=== PATIENT | male | born 1955 | race Caucasian/White ===

== ENCOUNTER 2021-10-18 15:06 | Emergency (ER) | payer BC, SELFPAY ==
[2021-10-18 15:07] VITALS: BP 193/102; PULSE 71; RESP 16; TEMP 35.8; O2SAT 98; BMI 26.4
--- NOTE | 2021-10-18 16:02 | EX.ED.DYSGE1 ---
HPI History of Present Illness Chief Complaint: Mccarty C/O Informant: patient Onset/Context/Timing Onset: Yesterday Context: Gradual Onset Timing: Continuous Quality: Burning Location: Urethra Worsened by: Nothing Relieved by: Nothing Narrative Narrative: Patient presents with problems with his Mccarty catheter. Patient has noted some burning that began yesterday. Patient noted some leaking around his catheter yesterday. Patient also admits to some urinary urgency. Patient had a recent prostate artery embolization for prostate hypertrophy. Patient is concerned that his catheter is not draining and he is retaining urine. Patient denies any fevers or chills. Patient denies any back pain. Patient denies any nausea or vomiting. [facility] Medical History (Updated 10/18/21 @ 17:[address] Wero Hayes DO) Hx of small bowel obstruction Allergy/AdvReac Type Severity Reaction Status Date / Time No Known Allergies Allergy Verified 10/18/21 15:09 Social History Smoking Status: Never smoker ROS ROS ED Constitutional Constitutional ED: Denies chills or fever(s) Eyes Eyes: Denies blurry vision or change in vision ENT ENT ED: Denies rhinorrhea or sore throat Cardiovascular Cardiovascular: Denies chest pain or palpitations Respiratory/Chest Respiratory/Chest: Denies cough or dyspnea Gastrointestinal Gastrointestinal: Denies nausea or vomiting Genitourinary Genitourinary ED: Denies dysuria or hematuria Musculoskeletal Musculoskeletal: Denies back pain or neck pain Integumentary Denies abscess or rash Neurologic Neurologic: Denies headache(s) or weakness Allergic/Immunologic Allergic/Immunologic ED: Denies mouth swelling or urticaria EXAM Physical Exam Const Vital Signs: 10/18/21 15:07 Temperature 96.5 F L Temperature Source Temporal Pulse Rate 71 Respiratory Rate 16 Blood Pressure 193/102 H Blood Pressure Mean 132 Pulse Ox 98 Oxygen Delivery Method Room Air Positive well nourished and well developed General Appearance ED: well developed HEENT Reports moist mucous membranes Neck supple and no JVD Resp normal respiratory effort and clear to auscultation bilaterally Cardio regular rate, regular rhythm and no murmurs GI normal to inspection, nondistended, normoactive bowel sounds and non-tender Palpation: soft Extremity normal to inspection General Extremety ED: Negative for edema or tenderness General Extremity: Negative for edema Neuro oriented x3, CN's II-XII intact bilaterally and no sensory deficits noted Sensorium / Orientation: alert Motor Exam: strength 5/5 throughout Psych mental status grossly normal Skin no rashes or lesions noted MDM MDM MDM Narrative Medical decision making narrative: The catheter was irrigated. It flowed easily. CBC and basic metabolic profile were obtained were within normal limits. Urinalysis does not show any evidence of urinary tract infection. Patient was feeling better. Patient left prior to completing discharge instructions. Patient did not receive a his discharge instructions or sign his discharge paperwork. Lab Data Attestation: I reviewed the patient's lab results. Labs: Laboratory Results - last 24 hr 10/18/21 10/18/21 10/18/21 16:11 16:11 16:14 WBC 11.1 H RBC 4.25 L Hgb 13.7 Hct 40.7 MCV 95.8 H MCH 32.2 H MCHC 33.7 RDW Std Deviation 43.3 RDW Coeff of Laly 12.3 Plt Count 192 MPV 9.9 Immature Gran % (Auto) 0.400 Neut % (Auto) 82.1 H Lymph % (Auto) 6.6 L [place] % (Auto) 9.2 Eos % (Auto) 1.2 Baso % (Auto) 0.5 Absolute Neuts (auto) 9.1 H Absolute Lymphs (auto) 0.73 L Nucleated RBC % 0 Sodium 140 Potassium 3.9 Chloride 108 H Carbon Dioxide 27.0 Anion Gap 5 BUN 20 H Creatinine 1.14 Estim Creat Clear Calc 71.06 Est GFR (MDRD) Af Amer 82 Est GFR (MDRD) Non-Af 68 BUN/Creatinine Ratio 17.5 Glucose 106 Calcium 9.5 Urine Color Yellow Urine Clarity Sl. Cloudy Urine pH 5.0 Ur Specific [place] 1.025 Urine Protein 30 H Urine Glucose (UA) Normal Urine Ketones Negative Urine Occult Blood 250 H Urine Nitrite Negative Urine Bilirubin Negative Urine Urobilinogen Normal Ur Leukocyte Esterase Negative Urine RBC 25-50 SEEN Urine WBC 0-5 SEEN Ur Squamous Epith Cells 0 SEEN Urine Bacteria 1+ Urine Mucus 0 SEEN Discharge Plan Triage Chief Complaint: Mccarty C/O ED Provider: Wero Hayes Dx/Rx/DC Orders Clinical Impression: Dysuria Instructions: ED Mccarty Catheter, Care Primary Care Provider: Marta Maier Referrals: Marta Maier, DO [Primary Care Provider] - 5-7 Days Disposition Disposition: [facility] Discharge Date/Time: 10/18/21 17:51
[2021-10-18 16:18] LABS: Mucous, Urine 0 SEEN /hpf (<or=2+); Squamous Epithelial Cells - UA 0 SEEN /hpf (0-5)
[2021-10-18 16:19] LABS: Absolute Lymphocyte Count 0.73 X10^3/uL (0.83-4.51); Absolute Neutrophil Count 9.1 X10^3/uL (2.0-7.7); Basophil# 0.06 X10^3/uL; Basophil% 0.5 % (0-1); Eosinophil# 0.13 X10^3/uL; Eosinophils% 1.2 % (0-5); Hematocrit 40.7 % (40-54); Hemoglobin 13.7 g/dL (13.0-16.5); Lymphocyte # 0.73 X10^3/ul (0.83-4.51); Lymphocyte % 6.6 % (19-41); Mean Corp Hgb Conc 33.7 g/dL (32-36); Mean Corpuscular Hgb 32.2 pg (27.0-32.0); Mean Corpuscular Volume 95.8 fL (80-94); Mean Platelet Vol. 9.9 fl (6.2-12.0); Monocyte# 1.02 X10^3/uL; Monocyte% 9.2 % (0-10); NRBC Flagged by Analyzer 0 % (0-5); Neutrophil # 9.08 X10^3/uL (2.7-7.7); Neutrophil % 82.1 % (47-70); Platelet Count 192 K/mm3 (150-450); RBC Distribution Width CV 12.3 % (11.6-14.6); RBC Distribution Width SD 43.3 fl (35.1-43.9); Red Blood Count 4.25 M/mm3 (4.6-6.2); White Blood Count 11.1 K/mm3 (4.4-11.0)
[2021-10-18 16:21] LABS: Color, Urine Yellow (Yellow); Glucose, Dipstick Normal (Normal); Ketone-Dipstick Negative (Negative); Leukocyte Esterase-Dipstick Negative /ul (Negative); Nitrite-Dipstick Negative (Negative); Occult Blood-Urine 250 /ul (Negative); Protein-Dipstick 30 mg/dl (Negative); Specific Gravity, Urine 1.025 (1.002-1.030); Urine Bilirubin Dipstick Negative (Negative); Urine Clarity Sl. Cloudy (Clear); Urine Urobilinogen Normal (Normal)
[2021-10-18 16:35] LABS: Red Blood Cells-Urine 25-50 SEEN /hpf (0-5)
[2021-10-18 16:36] LABS: White Blood Cells 0-5 SEEN /hpf (0-5)
[2021-10-18 16:37] LABS: Bacteria 1+ /hpf (None Seen)
[2021-10-18 16:52] LABS: Anion Gap 5 (5-15); BUN 20 mg/dL (7-18); BUN/Creat Ratio 17.5 RATIO (10-20); Calcium,Total 9.5 mg/dL (8.5-10.1); Chloride 108 mmol/L (98-107); Creatinine, Serum 1.14 mg/dL (0.70-1.30); EST Glomerular Filtration Rate 68 mL/min (>60); Est Glom Filt Rate - Afr Amer 82 mL/min (>60); Estimated Creatinine Clearance 71.06 ml/min; Glucose 106 mg/dL (74-106); Potassium 3.9 mmol/L (3.5-5.1); Sodium Level 140 mmol/L (136-145)
--- NOTE | 2021-10-18 17:22 | ED.RN ---
PT LEFT PRIOR TO RECEIVING D/C INSTRUCTIONS.
== END 2021-10-18 17:51 | disposition left against medical advice (07) ==
LOC: ED 15:46
PROVIDERS: Emergency Provider Emergency Medicine; PCP Internal Medicine
DX: R30.0 Dysuria (principal)
CPT/HCPCS: 36415; 80048; 81001; 85025; 99281; 99282

== ENCOUNTER 2022-12-10 14:02 | Emergency (ER) | payer BC, SELFPAY ==
[2022-12-10 14:03] VITALS: BP 184/100; PULSE 55; RESP 18; TEMP 35.9; O2SAT 96; BMI 26.6
[2022-12-10 14:24] VITALS: BP 189/108; PULSE 56; RESP 16; O2SAT 97
--- NOTE | 2022-12-10 14:33 | EKG12_ITS ---
Test Reason : CHEST HEAVINESS Blood Pressure : / mmHG Vent. Rate : 061 BPM Atrial Rate : 061 BPM P-R Int : 204 ms QRS Dur : 100 ms QT Int : 442 ms P-R-T Axes : 052 -06 069 degrees QTc Int : 444 ms Normal sinus rhythm Nonspecific ST and T wave abnormality Abnormal ECG Confirmed by CHRIS HERNANDES, JESUS ([id number]), offline editor MEHREEN STODDARD ([id number]) on 12/13/2022 11:48:44 AM Referred By: Confirmed By:JESUS PEREZ MD
--- NOTE | 2022-12-10 14:33 | ED.VIS.CHEST ---
HPI History of Present Illness Chief Complaint: Chest Pain Narrative Narrative: This is a 67-year-old female presenting with chest discomfort. 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 He states that when he flies he feels very comfortable but when he flies with other carriers he sometimes gets a lot of anxiety. He knows that the weather is poor and while he was boarding a plane started to feel chest tightness in the left side of his chest and tingling down to the left arm which lasted about 30 minutes. He refuses to call this pain. He states that this is would be a typical symptom for him when he worries about flying commercially. He states that he feels much better when he is flying a plane and he can control it. Patient states he does not have any history of cardiac disease. No history of DVT/PE although he does have a lot of recent travel. Patient is not on a blood thinner. Patient is not having sharp pleuritic pain and he currently has no symptoms at all. Patient does report that his blood pressure is a little elevated but on his last flight home he forgot his blood pressure medication in [place] and he is restarted his losartan 3 days ago. He denies headache, blurred vision, slurred speech, dizziness or lightheadedness. Patient reports that his heart rate is always slow. [facility] Medical History Enlarged prostate HTN (hypertension) Hx of small bowel obstruction Home Medications losartan 50 mg tablet 50 mg PO DAILY 12/10/22 [History Last Taken Unknown] Allergy/AdvReac Type Severity Reaction Status Date / Time No Known Allergies Allergy Verified 12/10/22 14:05 Social History Smoking Status: Never smoker ROS ROS ED Constitutional Constitutional ED: Denies chills or fever(s) Eyes Eyes: Denies none or blurry vision ENT ENT ED: Denies ear pain or rhinorrhea Cardiovascular Cardiovascular: Reports chest pain and palpitations Respiratory/Chest Respiratory/Chest: Denies cough or dyspnea Gastrointestinal Gastrointestinal: Denies abdominal pain, nausea or vomiting Genitourinary Genitourinary ED: Denies dysuria or hematuria Musculoskeletal Musculoskeletal: Denies arthralgias or back pain Integumentary Denies abscess or Abrasions Neurologic Neurologic: Denies headache(s) or paresthesias Psychiatric Psychiatric: Reports anxiety; Denies depression, suicidal ideation or suicidal thoughts EXAM Physical Exam Const Vital Signs: 12/10/22 14:03 12/10/22 14:23 12/10/22 14:24 Temperature 96.7 F L Temperature Source Temporal Pulse Rate 55 L 56 L Respiratory Rate 18 16 Respiratory Effort Normal Non-Labored Blood Pressure 184/100 H 189/108 H Blood Pressure Mean 128 135 Pulse Ox 96 97 Oxygen Delivery Method Room Air Room Air 12/10/22 14:40 12/10/22 16:02 12/10/22 17:00 Temperature Temperature Source Pulse Rate 59 L 59 L Respiratory Rate 16 16 Respiratory Effort Blood Pressure 187/101 H 197/102 H Blood Pressure Mean 129 133 Pulse Ox 98 97 98 Oxygen Delivery Method Room Air Room Air Room Air Positive well nourished General Appearance ED: NAD; Negative for pallor HEENT Reports moist mucous membranes normocephalic and atraumatic Eyes PERRL and EOMs intact bilaterally General Eye ED: Negative for pale conjunctiva or scleral icterus Chest Wall inspection of chest normal and palpation of chest normal Resp normal respiratory effort and clear to auscultation bilaterally Auscultation: Negative for rales, rhonchi or wheezes Cardio regular rate and regular rhythm Rate: bradycardia GI normal to inspection, nondistended, normoactive bowel sounds Extremity normal to inspection General Extremety ED: Negative for edema or pulses abnormal General Extremity: Negative for edema or pulses abnormal Neuro oriented x3 and CN's II-XII intact bilaterally Sensorium / Orientation: awake Motor Exam: strength 5/5 throughout Psych mental status grossly normal Skin no rashes or lesions noted and no wounds General Skin Exam: Negative for jaundice or pallor Heart Score History: Slightly/Non-Suspicious ECG: Normal Age: >/= 65 years Risk Factors: 1 or 2 Risk Factors Score: 3 MDM MDM MDM Narrative Medical decision making narrative: Patient presenting with chest tightness which occurred before boarding a plane. He does report that he does get very anxious before boarding planes when he is not flying them. He would not describe this as pain. He states it lasted for about 30 minutes. Denies history of cardiac disease. Patient does note that his blood pressure is elevated today because he was out of his losartan for 4 days because they left it out of town but he has been restarted on this. He denies any headache, visual complaints, nausea, weakness. 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 History denies obtained a D-dimer which was negative. EKG on my interpretation showed normal sinus rhythm with a ventricular rate of 61 bpm without sign of ischemic change or dysrhythmia. CBC obtained shows no leukocytosis. Hemoglobin normal. Platelets within normal limits. Renal function and electrolytes unremarkable. High-sensitivity troponin initially is 14. Chest x-ray on my interpreted shows no acute cardiopulmonary process and the radiologist does agree. Patient's been symptom-free throughout his stay here. He does admit to some anxiety. I think if his delta troponin is normal he will be able to be discharged home. This was discussed with him. He is amenable to this. I did order aspirin for him today however he reported that he took 2 full-strength 325 mg aspirins prior to coming so this was withheld. Impression: 1. Chest pain 2. Anxiety reaction 3. Hypertension. Lab Data Attestation: I reviewed the patient's lab results. Labs: Laboratory Results - last 24 hr 12/10/22 12/10/22 12/10/22 14:40 14:40 14:40 WBC 4.5 RBC 4.37 L Hgb 14.2 Hct 42.1 MCV 96.3 H MCH 32.5 H MCHC 33.7 RDW Std Deviation 43.6 RDW Coeff of [place] 12.3 Plt Count 185 MPV 9.4 Immature Gran % (Auto) 0.200 Neut % (Auto) 63.3 Lymph % (Auto) 22.8 [place] % (Auto) 11.1 H Eos % (Auto) 1.3 Baso % (Auto) 1.3 H Absolute Neuts (auto) 2.9 Absolute Lymphs (auto) 1.03 Nucleated RBC % 0 D-Dimer Quant (PE/DVT) 0.33 Sodium 141 Potassium 4.4 Chloride 109 H Carbon Dioxide 28.0 Anion Gap 4 L BUN 20 H Creatinine 1.08 Estim Creat Clear Calc 73.98 Est GFR (MDRD) Af Amer 87 Est GFR (MDRD) Non-Af 72 BUN/Creatinine Ratio 18.5 Glucose 110 H Calcium 9.0 Troponin I High Sens 14 Radiography Diagnostic Testing: Clinical Impression(s) from Imaging Studies Chest X-Ray 12/10/22 14:50 IMPRESSION: Mild increased markings at the lung bases suggestive of atelectasis. Electronically Signed: Cristino Talbot MD at 15:27 EST , Discharge Plan Triage Chief Complaint: Chest Pain ED Provider: Terell Styles Dx/Rx/DC Orders Prescriptions: No Action losartan 50 mg tablet 50 mg PO DAILY Label Comments: TAKE 1 TABLET BY MOUTH EVERY DAY Primary Care Provider: Marta Maier Referrals: Marta Maier, [Primary Care Provider] -
[2022-12-10 14:40] VITALS: O2SAT 98
--- NOTE | 2022-12-10 14:50 | RAD_ITS ---
STUDY: X-RAY CHEST REASON FOR EXAM: Male, 67 years old. Chest pain TECHNIQUE: Single AP portable view of the chest. COMPARISON: None. FINDINGS: EKG electrodes are seen. Mild degree of increased markings at the lung bases suggestive of bibasilar atelectasis. There is no demonstrated pleural abnormality. Normal size heart. Normal mediastinum and samia. Normal visualized pulmonary arteries. There is atherosclerotic tortuosity of the aortic arch and descending thoracic aorta. There are diffuse degenerative changes of the visualized thoracic spine. Normal visualized ribs, clavicles, and shoulders. There is no demonstrated abnormality of the visualized soft tissue structures of the upper abdomen. RAD/Chest 1 View (Portable) IMPRESSION: Mild increased markings at the lung bases suggestive of atelectasis. Electronically Signed: Cristino Talbot MD at 15:27 EST ,
[2022-12-10 14:52] LABS: Absolute Lymphocyte Count 1.03 X10^3/uL (0.83-4.51); Absolute Neutrophil Count 2.9 X10^3/uL (2.0-7.7); Basophil# 0.06 X10^3/uL; Basophil% 1.3 % (0-1); Eosinophil# 0.06 X10^3/uL; Eosinophils% 1.3 % (0-5); Hematocrit 42.1 % (40-54); Hemoglobin 14.2 g/dL (13.0-16.5); Lymphocyte # 1.03 X10^3/ul (0.83-4.51); Lymphocyte % 22.8 % (19-41); Mean Corp Hgb Conc 33.7 g/dL (32-36); Mean Corpuscular Hgb 32.5 pg (27.0-32.0); Mean Corpuscular Volume 96.3 fL (80-94); Mean Platelet Vol. 9.4 fl (6.2-12.0); Monocyte% 11.1 % (0-10); NRBC Flagged by Analyzer 0 % (0-5); Neutrophil # 2.85 X10^3/uL (2.7-7.7); Neutrophil % 63.3 % (47-70); Platelet Count 185 K/mm3 (150-450); RBC Distribution Width CV 12.3 % (11.6-14.6); RBC Distribution Width SD 43.6 fl (35.1-43.9); Red Blood Count 4.37 M/mm3 (4.6-6.2); White Blood Count 4.5 K/mm3 (4.4-11.0)
[2022-12-10 15:04] LABS: D-Dimer Quantitative (DVT/PE) 0.33 FEU/ug/m (0.27-0.49)
[2022-12-10 15:10] LABS: Anion Gap 4 (5-15); BUN 20 mg/dL (7-18); BUN/Creat Ratio 18.5 RATIO (10-20); Chloride 109 mmol/L (98-107); Creatinine, Serum 1.08 mg/dL (0.70-1.30); EST Glomerular Filtration Rate 72 mL/min (>60); Est Glom Filt Rate - Afr Amer 87 mL/min (>60); Estimated Creatinine Clearance 73.98 ml/min; Glucose 110 mg/dL (74-106); Potassium 4.4 mmol/L (3.5-5.1); Sodium Level 141 mmol/L (136-145); Troponin-I HS (w/2H Reflex) 14 pg/mL (3.0-78.0)
[2022-12-10 16:02] VITALS: BP 187/101; PULSE 59; RESP 16; O2SAT 97
[2022-12-10 16:49] LABS: Reflex Troponin-HS? (from REC) Y
[2022-12-10 17:00] VITALS: BP 197/102; PULSE 59; RESP 16; O2SAT 98
[2022-12-10 17:43] LABS: Troponin-I HS 15 pg/mL (3.0-78.0)
== END 2022-12-10 18:20 | disposition home or self-care (01) ==
PROVIDERS: Student in an Organized Health Care Education/Training Program; Emergency Provider Emergency Medicine; PCP Internal Medicine; Visit Provider Emergency Medicine
DX: R07.9 Chest pain, unspecified (principal); I10 Essential (primary) hypertension; F41.9 Anxiety disorder, unspecified; R00.2 Palpitations
CPT/HCPCS: 71045; 80048; 84484; 85025; 85379; 93005; 99283; J7040; A4216

== ENCOUNTER → 2023-01-05 | Outpatient (CLI) | payer BC, SELFPAY ==
--- NOTE | 2023-01-05 16:53 | STRESSREP_ITS ---
Stress Test Report Exercise myocardial perfusion stress test. 67-year-old man with a history of chest pain Stress protocol: Resting EKG demonstrates normal sinus rhythm with a rate of 48 bpm bpm resting blood pressure is 146/96 mmHg. The patient exercised according to the regular Will protocol for a total duration of 9 minutes attaining a maximum heart rate of 141 bpm which was 92% of maximum predicted heart rate; the maximum workload was 10.1 metabolic equivalents. At rest there were no ST or T wave changes noted to suggest ischemia and at peak exercise upsloping ST changes only were noted which did not meet the criteria for ischemia. No clinical angina was noted the test was terminated due to the target heart rate being achieved/fatigue. The peak blood pressure was 188/90 mmHg. Rate-pressure product was 26,000. Myocardial perfusion protocol. 15.9 mCi of technetium 99m sestamibi was injected at rest. The patient exercised according to regular Will protocol for total duration of 9 minutes and at peak exercise 39.7 mCi of technetium 99m sestamibi was injected stress images were obtained stress and rest images were reconstructed in comparing the short axis vertical long and horizontal long axis. Gated images were also obtained. Perfusion SPECT analysis: Review of the stress images demonstrate normal uptake of tracer noted in all a reas of the myocardium. The resting images similarly demonstrate normal uptake of tracer noted in all areas of the myocardium. No areas of reversibility are noted to suggest ischemia no previous infarct was noted. Gated SPECT analysis: The gated ejection fraction is 55%. Conclusion: Normal exercise myocardial perfusion stress test at a high workload Preserved ejection fraction.
== END | disposition home or self-care (01) ==
PROVIDERS: PCP Internal Medicine; Visit Provider Internal Medicine
DX: R07.9 Chest pain, unspecified (principal)
CPT/HCPCS: 78452; 93017; A9500; A4216

== ENCOUNTER → 2023-11-22 | Outpatient (CLI) | payer BC, SELFPAY ==
[2023-11-22 10:09] LABS: Absolute Lymphocyte Count 1.26 X10^3/uL (0.83-4.51); Absolute Neutrophil Count 2.7 X10^3/uL (2.0-7.7); Basophil# 0.08 X10^3/uL; Basophil% 1.6 % (0-1); Eosinophil# 0.25 X10^3/uL; Eosinophils% 5.1 % (0-5); Hematocrit 44.9 % (40-54); Hemoglobin 14.6 g/dL (13.0-16.5); Lymphocyte # 1.26 X10^3/ul (0.83-4.51); Lymphocyte % 25.8 % (19-41); Mean Corp Hgb Conc 32.5 g/dL (32-36); Mean Corpuscular Hgb 31.7 pg (27.0-32.0); Mean Corpuscular Volume 97.6 fL (80-94); Mean Platelet Vol. 10.2 fl (6.2-12.0); Monocyte# 0.59 X10^3/uL; Monocyte% 12.1 % (0-10); NRBC Flagged by Analyzer 0 % (0-5); Neutrophil % 55.2 % (47-70); Platelet Count 188 K/mm3 (150-450); RBC Distribution Width CV 12.8 % (11.6-14.6); RBC Distribution Width SD 46.1 fl (35.1-43.9); White Blood Count 4.9 K/mm3 (4.4-11.0)
[2023-11-22 10:29] LABS: Insulin 3.1 mU/L (2.6-37.6); Vitamin B12 440 pg/mL (211-911)
[2023-11-22 10:34] LABS: Homocysteine 8.3 umol/L (3.2-10.7)
[2023-11-22 10:39] LABS: ALB/GLOB Ratio 1.1 RATIO (0.9-2.4); AST(SGOT) 24 U/L (15-37); Alanine Aminotransfer ALT/SGPT 31 U/L (16-61); Albumin, Serum 3.7 g/dL (3.2-5.0); Alkaline Phosphatase 53 U/L (45-117); Anion Gap 4 (5-15); BUN 24 mg/dL (7-18); Calcium,Total 8.7 mg/dL (8.5-10.1); Chloride 108 mmol/L (98-107); Creatinine, Serum 1.09 mg/dL (0.70-1.30); EST Glomerular Filtration Rate 71 mL/min (>60); Est Glom Filt Rate - Afr Amer 86 mL/min (>60); Ferritin 158 ng/mL (26-388); Globulin 3.5 g/dL (2.2-4.2); Glucose 101 mg/dL (74-106); Potassium 3.9 mmol/L (3.5-5.1); Protein, Total 7.2 g/dL (6.4-8.2); Sodium Level 140 mmol/L (136-145)
[2023-11-23 11:08] LABS: Lipoprotein A 14.8 nmol/L (<75.0); Sex Hormone-binding Globulin 37.3 nmol/L (19.3-76.4)
== END | disposition home or self-care (01) ==
PROVIDERS: PCP Internal Medicine; Referring Provider Internal Medicine; Visit Provider Internal Medicine
DX: I10 Essential (primary) hypertension (principal); R97.20 Elevated prostate specific antigen [PSA]; Z13.9 Encounter for screening, unspecified
CPT/HCPCS: 36415; 80053; 82607; 82728; 82746; 83090; 83525; 83695; 84153; 84270; 85025

== ENCOUNTER → 2024-08-24 | Outpatient (CLI) | payer BC, OTHER, SELFPAY ==
--- NOTE | 2024-08-24 14:17 | STRESSREP_ITS ---
Stress Test Report Exercise myocardial perfusion stress test. 68-year-old man with a history of coronary artery disease Stress protocol: Resting EKG demonstrates atrial fibrillation with a ventricular response rate of 59 bpm resting blood pressure is 118/72 mmHg. The patient exercised according to the regular Will protocol for a total duration of 9 minutes and 44 seconds attaining a maximum heart rate of 150 bpm which was 99% of maximum predicted heart rate; the maximum workload was 12.5 metabolic equivalents. At rest there were no ST or T wave changes noted to suggest ischemia and at peak exercise upsloping ST changes only were noted which did not meet the criteria for ischemia. No clinical angina was noted the test was terminated due to the targ et heart rate being achieved/fatigue. The peak blood pressure was 174/68 mmHg. Rate-pressure product was 21,500. Myocardial perfusion protocol. 14.6 mCi of technetium 99m sestamibi was injected at rest. The patient exercised according to regular Will protocol for total duration of 9 minutes and 44 seconds and at peak exercise 44.1 mCi of technetium 99m sestamibi was injected stress images were obtained stress and rest images were reconstructed in comparing the short axis vertical long and horizontal long axis. Gated images were also obtained. Perfusion SPECT analysis: Review of the stress images demonstrate normal uptake of tracer noted in all areas of the myocardium. The resting images similarly demonstrate normal uptake of tracer noted in all areas of the myocardium. No areas of reversibility are noted to suggest ischemia no previous infarct was noted. Gated SPECT analysis: The gated ejection fraction is 62%. Conclusion: Normal exercise myocardial perfusion stress test at a high workload Preserved ejection fraction. Good functional aerobic capacity Atrial fibrillation noted
== END | disposition home or self-care (01) ==
PROVIDERS: PCP Internal Medicine; Referring Provider Internal Medicine; Visit Provider Internal Medicine
DX: I25.10 Atherosclerotic heart disease of native coronary artery without angina pectoris (principal)
CPT/HCPCS: 78452; 93017; A9500; A4216

== ENCOUNTER → 2024-09-17 | Outpatient (CLI) | payer BC, OTHER, SELFPAY ==
--- NOTE | 2024-09-17 12:31 | ECHOD_ITS ---
Reason For Study: ATRIAL FIBRILLATION Procedure This was a 2D Doppler, Color Flow transthoracic echocardiogram. Exam performed in department. Left Ventricle Normal LV size. Mild concentric left ventricular hypertrophy. The left ventricular ejection fraction is 65 %. No evidence for diastolic dysfunction. Right Ventricle Normal right ventricle. Atria The left and right atria are normal. Mitral Valve Trivial mitral valve insufficiency. Tricuspid Valve Trivial tricuspid valve insufficiency. Right ventricular systolic pressure estimated to be 35 mmHg. Aortic Valve Trisinus/trileaflet aortic valve. Mild (1+) eccentric aortic valve insufficiency. Pulmonic Valve The pulmonic valve is not well visualized. Trivial pulmonic valve insufficiency. Great Vessels Mildly dilated aortic root. Pericardium/Pleural No pericardial effusion. MMode/2D Measurements & Calculations LVIDd: 5.0 cm IVSd: 1.2 cm LVOT diam: 2.2 cm LVIDs: 3.1 cm LVPWd: 1.1 cm LVOT area: 3.8 cm2 RVDd: 3.8 cm FS: 36.9 % asc Aorta Diam: 4.1 cm LAV(MOD-bp): 69.4 ml LVAd ap4: 29.8 cm2 LAV(MOD-bp) Indexed: 32.4 ml/m2 LVLd ap4: 8.5 cm LAV(MOD-sp2): 76.6 ml EDV(MOD-sp4): 86.2 ml LAV(MOD-sp4): 57.5 ml EDV(sp4-el): 88.2 ml LVAs ap4: 17.9 cm2 LVLs ap4: 6.7 cm ESV(MOD-sp4): 40.3 ml ESV(sp4-el): 40.2 ml EF(MOD-sp4): 53.2 % EF(sp4-el): 54.4 % LVAd ap2: 28.9 cm2 SV(MOD-sp4): 45.9 ml SV(MOD-sp2): 52.3 ml LVLd ap2: 8.4 cm EDV(MOD-sp2): 85.6 ml EDV(sp2-el): 83.9 ml LVAs ap2: 15.5 cm2 LVLs ap2: 6.3 cm ESV(MOD-sp2): 33.3 ml ESV(sp2-el): 32.3 ml EF(MOD-sp2): 61.1 % SV(sp4-el): 47.9 ml Ao sinus diam: 3.[address] Junction: 3.5 cm LA dimension(2D): 3.9 cm LA A4 area: 20.5 cm2 RA A4 area: 17.9 cm2 TAPSE: 2.2 cm Time Measurements MV dec time: 0.31 sec Doppler Measurements & Calculations MV E max adonis: 78.0 cm/sec Lat Peak E' Adonis: 8.6 cm/sec Med Peak E' Adonis: 6.8 cm/sec MV A max adonis: 67.0 cm/sec E/E' lat: 9.1 E/E' med: 11.5 MV E/A: 1.2 MV dec slope: 251.4 cm/sec2 Ao V2 max: 124.7 cm/sec LV V1 max: 83.6 cm/sec Ao max P.2 mmHg LV V1 max P.8 mmHg Ao V2 mean: 99.8 cm/sec LV V1 mean P.6 mmHg Ao mean P.1 mmHg LV V1 mean: 59.1 cm/sec Ao V2 VTI: 26.2 cm LV V1 VTI: 18.5 cm AV (velocity ratio): 0.70 DEANNE(I,D): 2.6 cm2 DEANNE(V,D): 2.5 cm2 SV(LVOT): 69.3 ml PA V2 max: 92.2 cm/sec TR max adonis: 221.7 cm/sec PA max PG (full): 0.72 mmHg TR max P.7 mmHg ECHO/Echo Complete Interpretation Summary Mild concentric left ventricular hypertrophy. The left ventricular ejection fraction is 65 %. No evidence for diastolic dysfunction. Mild (1+) eccentric aortic valve insufficiency. Mildly dilated aortic root. Ordering Physician: Marta Maier Referring Physician: Marta Maier Performed By: Swati Recio RDCS
== END | disposition home or self-care (01) ==
LOC: CVS 12:31
PROVIDERS: PCP Internal Medicine; Referring Provider Internal Medicine; Visit Provider Internal Medicine
DX: I48.91 Unspecified atrial fibrillation (principal)
CPT/HCPCS: 93306

== ENCOUNTER → 2024-10-19 | Outpatient (CLI) | payer BC, OTHER, SELFPAY | END | disposition home or self-care (01) | LOC: PSN 08:26 | PROVIDERS: PCP Internal Medicine; Referring Provider Internal Medicine; Visit Provider Internal Medicine | DX: I49.3 Ventricular premature depolarization (principal) | CPT/HCPCS: 93225; 93226 ==

== ENCOUNTER → 2025-05-27 | Outpatient (CLI) | payer BC, OTHER, SELFPAY ==
--- NOTE | 2025-05-27 07:35 | CT_ITS ---
PROCEDURE: CTA CHEST W/WO CONTRAST 05/27/2025 REASON FOR EXAM: CTA OF CHEST WITH AND W/O - DILATED AORTIC ROOT, DUE IN APRIL TECHNIQUE: CTA CHEST W/WO CONTRAST Multiplanar Sagittal and Coronal images were obtained. CONTRAST: Isovue 370 VOLUME: 99 mL One or more dose reduction techniques were used (e.g., Automated exposure control, adjustment of the mA and/or kV according to patient size, use of iterative reconstruction technique). RADIATION DOSE SUMMARY: CTDlvol: 100 mGy DLP: 3190 mGycm COMPARISON: No # FINDINGS: Unremarkable base of neck and axilla. Thoracic spine scoliosis and degeneration. Normal esophagus. Normal heart size. No aortic dissection. No central pulmonary embolism. No evidence for thoracic aortic aneurysm or dilatation. Ascending aorta measures up to 3.7 cm maximum cross-section, which is within normal limits. Scattered calcified aortic plaque. Mild tortuosity. Three-vessel arch. No acute chest wall findings. Central airways are patent. Dependent atelectasis. No consolidation, effusion, or pneumothorax. CT/CTA Chest W/WO Contrast IMPRESSION: No acute chest findings. No evidence for thoracic aortic aneurysm or dilatation. Reading Location: [place] [id number]
--- NOTE | 2025-05-27 07:35 | CT_ITS ---
PROCEDURE: CT ABD/PELVIS W/WO CONTRAST 05/27/2025 REASON FOR EXAM: HIGH PROGESTERONE LEVELS TECHNIQUE: CT ABD/PELVIS W/WO CONTRAST Coronal and Sagittal reconstruction series were provided. CONTRAST: Isovue 370 VOLUME: 99 mL One or more dose reduction techniques were used (e.g., Automated exposure control, adjustment of the mA and/or kV according to patient size, use of iterative reconstruction technique. RADIATION DOSE SUMMARY: CTDlvol: 100 mGy DLP: 3190 mGycm COMPARISON: No FINDINGS: Clear lung bases. Normal heart size. Multiple liver cysts. Unremarkable gallbladder, pancreas, spleen, adrenal glands, kidneys. Small simple left renal cyst. No hydronephrosis or ureteral stone. Bladder wall hypertrophy and small diverticulum. Moderately enlarged prostate. No retroperitoneal or pelvic adenopathy. No free air. Nondistended bowel. Normal appendix. No acute large bowel findings. Lumbar spine degeneration. CT/CT Abd/Pelvis W/WO Contrast IMPRESSION: No acute finding Reading Location: [place] [address]
== END | disposition home or self-care (01) ==
LOC: CT 07:25
PROVIDERS: PCP Internal Medicine; Referring Provider Internal Medicine; Visit Provider Internal Medicine
DX: I77.810 Thoracic aortic ectasia (principal); R86.1 Abnormal level of hormones in specimens from male genital organs
CPT/HCPCS: 71275; 74178; Q9967; A4216